=== PATIENT | male | born 1980 | race Caucasian/White ===

== ENCOUNTER 2017-02-07 09:13 | Day surgery (SDC) | payer OTHER ==
[2017-02-06 09:38] VITALS: BP 120/87
[~2017-02-07] VITALS: Ht 193 cm; Wt 179.5 kg
[~2017-02-07 09:13] MED LIST: LOVA10TA PO
[2017-02-07] MEDS ORDERED: FLUT9.9S NAS (09:50)
[2017-02-07] MEDS ORDERED: AMOX1TAB61 PO (09:50)
[2017-02-07] MEDS ORDERED: LACTATED RINGERS 1,000 ML IV SCH (09:54)
[2017-02-07] MEDS ORDERED: LIDOCAINE 1%, 2ML SQ PRN (10:00)
[2017-02-07] MEDS ORDERED: EPINEPHRINE 1 MG/ML, 1ML ONE (10:35)
[2017-02-07] MEDS ORDERED: BUPIVACAINE/PF 0.5% ONE (10:35)
[2017-02-07] MEDS ORDERED: MIDAZOLAM 1 MG/ML, 2ML ONE ×2 (10:50)
[2017-02-07] MEDS ORDERED: FENTANYL PF 100 MCG/2ML ONE ×4 (10:50)
[2017-02-07] MEDS ORDERED: SUCCINYLCHOLINE 20 MG/ML, 10ML ONE (11:04)
[2017-02-07] MEDS ORDERED: KETOROLAC 30 MG/1 ML ONE (11:04)
[2017-02-07] MEDS ORDERED: METOCLOPRAMIDE 5 MG/ML, 2ML ONE (11:04)
[2017-02-07] MEDS ORDERED: PROPOFOL 10 MG/ML, 20ML ONE (11:04)
[2017-02-07] MEDS ORDERED: CEFAZOLIN 1,000 MG ONE (11:04)
[2017-02-07] MEDS ORDERED: DEXAMETHASONE 4 MG/ML, 5ML ONE (11:04)
[2017-02-07] MEDS ORDERED: ONDANSETRON 2MG/ML, 2ML ONE (11:04)
[2017-02-07] MEDS ORDERED: LABETALOL 5MG/ML, 20ML IV PRN (11:30)
[2017-02-07] MEDS ORDERED: PROMETHAZINE 25 MG/ML, 1ML IV PRN (11:30)
[2017-02-07] MEDS ORDERED: FENTANYL PF 100 MCG/2ML IV PRN (11:30)
[2017-02-07] MEDS ORDERED: HYDROmorphone 1 MG/ML, 1ML IV PRN (11:30)
[2017-02-07] MEDS ORDERED: ALBUTEROL SULFATE 2.5 MG/3 ML NPPB PRN (11:30)
[2017-02-07] MEDS ORDERED: hydrALAzine 20 MG/ML, 1ML IV PRN (11:30)
[2017-02-07] MEDS ORDERED: ACETAMINOPHEN 325 MG TABLET PO PRN (11:30)
[2017-02-07] MEDS ORDERED: MEPERIDINE/PF 25MG/0.5ML IVPush PRN (11:30)
[2017-02-07] MEDS ORDERED: OXYcodone 5 MG/5 ML ORAL.SOL UDC PO PRN (11:30)
[2017-02-07] MEDS ORDERED: ONDANSETRON 2MG/ML, 2ML IVPush PRN (11:30)
[2017-02-07] MEDS ORDERED: MIDAZOLAM 1 MG/ML, 2ML IV PRN (11:30)
[2017-02-07] MEDS ORDERED: OXYcodone 5 MG/5 ML ORAL.SOL UDC ONE (12:08)
[2017-02-07] MEDS ORDERED: ACETAMINOPHEN 650 MG/20.3 ML UDC ONE (12:08)
== END 2017-02-07 13:30 ==
LOC: OR 09:13 → EDBD 11:00 → OR 13:30
PROVIDERS: ATTEND Surgery
DX: L73.2 Hidradenitis suppurativa (principal); E78.5 Hyperlipidemia, unspecified; Z98.890 Other specified postprocedural states; Z98.52 Vasectomy status; Z72.89 Other problems related to lifestyle
CPT/HCPCS: 11462; 88305; J0171; J0330; J0690; J1100; J1885; J2250; J2405; J2704; J2765; J3010; J3490; J7120